=== PATIENT | female | born 1950 | race Asian ===

== ENCOUNTER 2017-06-02 16:24 | Outpatient (CLI) | payer OTHER ==
[~2017-06-02 16:24] MED LIST: ASA LOW STR81 MG PO; DIOVAN HC1 PO; NYST100048 MT; OMEP20CA PO; [UNRECOGNIZED DRUG - OTHER] PO
[2017-06-02 17:23] LABS: PLATELET COUNT 210 K/uL (152-353)
[2017-06-02 17:35] LABS: POTASSIUM 3.2 mmol/L (3.6-5.2)
== END 2017-06-02 17:30 | disposition home or self-care (01) ==
LOC: LABW 16:24
PROVIDERS: Internal Medicine
DX: I10 Essential (primary) hypertension (principal)
CPT/HCPCS: 36415; 80053; 80061; 81000; 84443; 85027

== ENCOUNTER 2017-10-13 15:25 | Outpatient (CLI) | payer OTHER | END 2017-10-13 18:17 | disposition home or self-care (01) | LOC: LABW 15:25 | DX: B35.1 Tinea unguium (principal) | CPT/HCPCS: 36415; 84450; 84460 ==

== ENCOUNTER 2018-01-04 08:55 | Outpatient (CLI) | payer OTHER | END 2018-01-04 22:14 | disposition home or self-care (01) | LOC: LABW 08:55 | DX: B35.1 Tinea unguium (principal) | CPT/HCPCS: 36415; 84450; 84460 ==

== ENCOUNTER 2018-02-15 11:03 | Outpatient (CLI) | payer OTHER | END 2018-02-15 23:40 | disposition home or self-care (01) | LOC: RAD 11:03 | DX: R04.2 Hemoptysis (principal); J47.9 Bronchiectasis, uncomplicated ==

== ENCOUNTER 2018-03-29 12:13 | Outpatient (CLI) | payer OTHER ==
[2018-03-29 13:19] LABS: PLATELET COUNT 232 K/uL (152-353)
[2018-03-29 13:34] LABS: POTASSIUM 2.7 mmol/L (3.6-5.2)
== END 2018-03-29 22:24 | disposition home or self-care (01) ==
LOC: LABW 12:13
PROVIDERS: Internal Medicine Critical Care Medicine
DX: I27.20 Pulmonary hypertension, unspecified (principal); D86.9 Sarcoidosis, unspecified
CPT/HCPCS: 36415; 80053; 85027; 86039; 86235; 86376

== ENCOUNTER 2018-06-29 13:32 | Outpatient (CLI) | payer OTHER | END 2018-06-29 23:03 | disposition home or self-care (01) | LOC: RAD 13:32 | DX: R05 Cough (principal) ==

== ENCOUNTER 2018-08-15 15:30 | Emergency (ER) | payer OTHER ==
[~2018-08-15] VITALS: Ht 170.2 cm; Wt 93.0 kg
[2018-08-15 16:41] LABS: PLATELET COUNT 245 K/uL (152-353)
[2018-08-15 16:43] LABS: POTASSIUM 3.1 mmol/L (3.6-5.2)
[2018-08-15 17:32] VITALS: BP 156/89; TEMP 97.8
== END 2018-08-15 17:50 | disposition home or self-care (01) ==
LOC: ED 15:30
PROVIDERS: Family Medicine
DX: J70.0 Acute pulmonary manifestations due to radiation (principal); R04.2 Hemoptysis
CPT/HCPCS: 36415; 80053; 81000; 85027; 87116; 87206; 99283

== ENCOUNTER 2018-08-16 16:00 | Outpatient (CLI) | payer OTHER | END 2018-08-16 19:00 | LOC: LAB 16:00 | DX: J70.0 Acute pulmonary manifestations due to radiation (principal) | CPT/HCPCS: 87116; 87206 ==

== ENCOUNTER 2018-08-17 12:32 | Outpatient (CLI) | payer OTHER | END 2018-08-17 23:05 | disposition home or self-care (01) | LOC: LAB 12:32 | DX: J70.0 Acute pulmonary manifestations due to radiation (principal) | CPT/HCPCS: 87116; 87206 ==

== ENCOUNTER 2018-08-18 10:27 | Outpatient (CLI) | payer OTHER | END 2018-08-18 23:26 | disposition home or self-care (01) | LOC: LAB 10:27 | DX: J70.0 Acute pulmonary manifestations due to radiation (principal) | CPT/HCPCS: 87116; 87206 ==

== ENCOUNTER 2018-10-20 14:06 | Outpatient (CLI) | payer OTHER | END 2018-10-20 19:23 | disposition home or self-care (01) | LOC: MAMMO 14:06 | DX: Z90.11 Acquired absence of right breast and nipple (principal); C50.911 Malignant neoplasm of unspecified site of right female breast ==

== ENCOUNTER 2019-05-12 09:55 | Outpatient (CLI) | payer OTHER | END 2019-05-12 21:55 | disposition home or self-care (01) | LOC: MAMMO 09:55 | DX: Z12.31 Encounter for screening mammogram for malignant neoplasm of breast (principal); Z13.820 Encounter for screening for osteoporosis; N95.8 Other specified menopausal and perimenopausal disorders ==

== ENCOUNTER 2019-08-22 11:02 | Outpatient (CLI) | payer OTHER ==
[2019-08-22 11:23] LABS: PLATELET COUNT 224 K/uL (152-353)
[2019-08-22 11:42] LABS: POTASSIUM 3.2 mmol/L (3.6-5.2)
== END 2019-08-22 22:21 | disposition home or self-care (01) ==
LOC: LAB 11:02
PROVIDERS: Physician Assistant
DX: I10 Essential (primary) hypertension (principal); D86.89 Sarcoidosis of other sites; Z79.52 Long term (current) use of systemic steroids; E55.9 Vitamin D deficiency, unspecified
CPT/HCPCS: 80053; 82306; 84439; 84443; 85027

== ENCOUNTER 2019-09-20 09:56 | Outpatient (CLI) | payer OTHER ==
[2019-09-20 10:27] LABS: POTASSIUM 3.1 mmol/L (3.6-5.2)
== END 2019-09-20 19:20 | disposition home or self-care (01) ==
LOC: LABW 09:56
PROVIDERS: Internal Medicine
DX: E87.6 Hypokalemia (principal)
CPT/HCPCS: 36415; 80053; 83735

== ENCOUNTER 2019-10-02 11:00 | Outpatient (CLI) | payer OTHER ==
[2019-10-02 11:23] LABS: POTASSIUM 3.3 mmol/L (3.6-5.2)
== END 2019-10-02 23:06 | disposition home or self-care (01) ==
LOC: LABW 11:00
PROVIDERS: Internal Medicine
DX: E87.6 Hypokalemia (principal)
CPT/HCPCS: 36415; 80048; 83735

== ENCOUNTER 2019-11-08 09:40 | Outpatient (CLI) | payer OTHER ==
[2019-11-08 10:01] LABS: POTASSIUM 3.3 mmol/L (3.6-5.2)
== END 2019-11-08 22:55 | disposition home or self-care (01) ==
LOC: LABW 09:40
PROVIDERS: Internal Medicine
DX: E87.6 Hypokalemia (principal); E83.42 Hypomagnesemia
CPT/HCPCS: 36415; 80048; 83735

== ENCOUNTER 2020-01-31 11:53 | Outpatient (CLI) | payer OTHER | END 2020-01-31 20:26 | disposition home or self-care (01) | LOC: RAD 11:53 | DX: D86.0 Sarcoidosis of lung (principal) ==

== ENCOUNTER 2020-02-01 08:19 | Outpatient (CLI) | payer OTHER | END 2020-02-01 22:50 | disposition home or self-care (01) | LOC: LAB 08:19 | DX: J41.1 Mucopurulent chronic bronchitis (principal) | CPT/HCPCS: 87635; G2023; U00003 ==

== ENCOUNTER 2020-03-12 11:38 | Emergency (ER) | payer OTHER ==
[~2020-03-12] VITALS: Ht 170.2 cm; Wt 97.5 kg
[2020-03-12 12:54] LABS: PLATELET COUNT 242 K/uL (152-353)
[2020-03-12 13:04] LABS: POTASSIUM 3.5 mmol/L (3.6-5.2)
[2020-03-12 13:16] LABS: PARTIAL THROMBOPLASTIN TIME 22.7 SECONDS (24.5-33.6)
[2020-03-12 17:38] VITALS: BP 148/88; TEMP 98.7
== END 2020-03-12 17:37 | disposition home or self-care (01) ==
LOC: ED 11:38
PROVIDERS: Family Medicine
DX: J47.9 Bronchiectasis, uncomplicated (principal); D86.89 Sarcoidosis of other sites; R04.2 Hemoptysis
CPT/HCPCS: 36415; 80053; 81000; 85027; 85610; 85730; 93005; 99283; Q9963

== ENCOUNTER 2020-08-06 10:56 | Outpatient (CLI) | payer OTHER | END 2020-08-06 23:20 | disposition home or self-care (01) | LOC: MAMMO 10:56 | PROVIDERS: ATTEND Nurse Practitioner Family | DX: C50.911 Malignant neoplasm of unspecified site of right female breast (principal); Z17.1 Estrogen receptor negative status [ER-]; N64.59 Other signs and symptoms in breast | CPT/HCPCS: G0279 ==

== ENCOUNTER 2020-09-08 02:21 | Emergency (ER) | payer OTHER ==
[~2020-09-08] VITALS: Ht 170.2 cm; Wt 97.5 kg
[2020-09-08 03:05] LABS: POTASSIUM 3.6 mmol/L (3.6-5.2); SODIUM 141 mmol/L (136-145)
[2020-09-08 03:10] LABS: PLATELET COUNT 215 K/uL (152-353)
[2020-09-08 03:15] LABS: PARTIAL THROMBOPLASTIN TIME 21.5 SECONDS (24.5-33.6)
[2020-09-08 04:35] VITALS: BP 146/90; TEMP 98
== END 2020-09-08 04:35 | disposition home health service (06) ==
LOC: ED 02:21
PROVIDERS: Hospitalist
DX: J84.89 Other specified interstitial pulmonary diseases (principal); D86.89 Sarcoidosis of other sites; J47.9 Bronchiectasis, uncomplicated; R04.2 Hemoptysis; Z20.828 Contact with and (suspected) exposure to other viral communicable diseases
CPT/HCPCS: 36415; 80053; 82550; 83880; 84484; 85027; 85379; 85610; 85730; 87635; 93005; 94664; 96365; 96375; 99284; J0696; J1100; J2405; Q9963; U0003

== ENCOUNTER 2020-11-05 13:55 | Outpatient (CLI) | payer OTHER | END 2020-11-05 21:07 | disposition home or self-care (01) | LOC: LAB 13:55 | PROVIDERS: ATTEND Internal Medicine | DX: R73.9 Hyperglycemia, unspecified (principal) | CPT/HCPCS: 83036 ==

== ENCOUNTER 2020-11-06 09:24 | Outpatient (CLI) | payer OTHER | END 2020-11-06 21:18 | disposition home or self-care (01) | LOC: LABW 09:24 | PROVIDERS: ATTEND Internal Medicine | DX: R73.9 Hyperglycemia, unspecified (principal) | CPT/HCPCS: 36415; 82947 ==

== ENCOUNTER 2021-02-17 08:41 | Outpatient (CLI) | payer OTHER ==
[2021-02-17 09:27] LABS: PLATELET COUNT 245 K/uL (152-353)
[2021-02-17 09:36] LABS: POTASSIUM 3.3 mmol/L (3.6-5.2)
== END 2021-02-17 22:36 | disposition home or self-care (01) ==
LOC: RAD 08:41
PROVIDERS: ATTEND Podiatrist
DX: Z01.810 Encounter for preprocedural cardiovascular examination (principal); Z01.811 Encounter for preprocedural respiratory examination; Z01.812 Encounter for preprocedural laboratory examination
CPT/HCPCS: 36415; 80053; 85027; 85660; 93005

== ENCOUNTER 2021-08-11 11:25 | Outpatient (CLI) | payer OTHER | END 2021-08-11 20:57 | disposition home or self-care (01) | LOC: MAMMO 11:25 | PROVIDERS: ATTEND Surgery | DX: C50.411 Malignant neoplasm of upper-outer quadrant of right female breast (principal); Z17.1 Estrogen receptor negative status [ER-]; Z12.31 Encounter for screening mammogram for malignant neoplasm of breast ==

== ENCOUNTER 2021-09-01 12:50 | Outpatient (CLI) | payer OTHER | END 2021-09-01 19:16 | disposition home or self-care (01) | LOC: MAMMO 12:50 | PROVIDERS: ATTEND Surgery | DX: R92.2 Inconclusive mammogram (principal) ==